=== PATIENT | female | born 1970 | race Caucasian/White ===

== ENCOUNTER 2023-07-19 15:11 | Outpatient (REF) | payer BC, SELFPAY | END 2023-07-19 15:12 | disposition home or self-care (01) | LOC: LBN 15:11 | PROVIDERS: PCP Obstetrics & Gynecology; Visit Provider Physician Assistant Medical | DX: J02.9 Acute pharyngitis, unspecified (principal) | CPT/HCPCS: 87070 ==

== ENCOUNTER 2024-05-27 01:05 | Outpatient (CLI) | payer BC, SELFPAY ==
--- NOTE | 2024-05-27 | DI.MRI_ITS ---
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 TECHNIQUE: Multiplanar multisequence MRI was performed. COMPARISON: None. FINDINGS: BONES: There is no fracture nor bone contusion. No evidence of avascular necrosis. JOINTS: The radiocarpal joint is unremarkable. The carpal joints are unremarkable. Scapholunate dis tance is normal. SOFT TISSUES: There is a para-articular ganglia on cyst on the palm are lateral aspect of the wrist,, appearing to terminate off of the volar lateral aspect of the radiocarpal joint and measuring approx imately 9 by 5 by 7 mm, exhibiting internal septations and intimately associated with the lateral asp ect of the flexor carpi radialis tendon. There is no tenosynovitis of this tendon. TENDONS: Flexors: Unremarkable. No tears nor tenosynovitis. Extensors: Unremarkable. No tears or tenosynovitis. Carpal tunnel:Unremarkable MUSCLES: Unremarkable. MEDIAN NERVE: Unremarkable on this noncontrast examination. LIGAMENTS: Unremarkable. TRIANGULAR FIBROCARTILAGE: SOME DEGENERATIVE INTERNAL SIGNAL NOTED. NO HIGH-GRADE TEAR. OTHER: IMPRESSION: There is a partially septated ganglia on cyst on the palm are lateral aspect of the wrist located imm ediately adjacent to the flexor carpi radialis tendon. DATA REPOSITORY:
== END 2024-05-27 01:25 ==
PROVIDERS: PCP Obstetrics & Gynecology; Visit Provider Nurse Practitioner Family
DX: M67.431 Ganglion, right wrist (principal)
CPT/HCPCS: 73221

== ENCOUNTER 2024-12-11 01:25 | Outpatient (CLI) | payer BC, SELFPAY ==
--- NOTE | 2024-12-11 07:00 | DI.MRI_ITS ---
Exam(s) MR LOWER JOINT LT WO EXAM: MR LOWER JOINT LT WO CLINICAL HISTORY: L KNEE PAIN,INTERNAL DERANGEMENT LT KNEE, M23.92 TECHNIQUE: Multiplanar multisequence MRI of the knee was performed. COMPARISON: CR XR KNEE LEFT 4 OR MORE VIEWS from 11/01/2024 FINDINGS: EFFUSION: There is a moderate size knee joint effusion. Mild synovial thickening noted. There is no Seymour cyst in the popliteal fossa. MARROW:There is no evidence of fracture, bone contusion, nor osteochondral defects.. Incidentally noted is a small benign-appearing non expansile bone lesion in the distal femoral metaphysis measuring 1.0 x 0.9 cm. This is most probably a benign enchondroma. There is no surrounding marrow edema. PATELLOFEMORAL COMPARTMENT: The quadriceps tendon is intact. The patellar ligament is intact. 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 There is also some mild intraosseous signal in the posterior patella but no osteochondral defects. There also small marginal osteophytes of both sides of the patella. There is no intraosseous signal to suggest recent patellar dislocation. There are no patellar retinacular tears. CRUCIATE LIGAMENTS: The anterior cruciate ligament is intact.The posterior cruciate ligament is intact. MEDIAL COMPARTMENT/MEDIAL MENISCUS: There is a complex tear in the medial aspect of the posterior horn of the medial meniscus which exhibits both radial and horizontal components and involves the root of the meniscus at this level. There is no evidence of tear in the outer 3rd of the posterior horn. There is no evidence of tear of the anterior horn. There is moderate thinning of the articular cartilage over the main weight- bearing surface of the medial femoral condyle. There is, however, no evidence of subarticular edema and there are no osteochondral defects. Small marginal osteophytes are noted off the inner and outer aspects of the medial condyle. There is no abnormal signal in the subjacent medial tibial plateau. MEDIAL COLLATERAL LIGAMENT: Intact LATERAL COMPARTMENT/LATERAL MENISCUS: There is no evidence of lateral meniscal tear.There are no chondral defects, osteochondral defects, subarticular marrow edema, nor osteophytes evident. ILIOTIBIAL BAND: Intact LATERAL COLLATERAL LIGAMENT COMPLEX: The fibular collateral ligament is intact. The biceps femoris tendon is intact.Popliteus muscle and tendon are intact. IMPRESSION: 1. There is a complex tear in the inner aspect of the posterior horn of the medial meniscus just lateral to the root of the meniscus and exhibiting both radial and horizontal tear components. There are no flipped meniscal fragments nor displacement of meniscal fragment into the intercondylar notch. There is no obvious tear of the anterior horn of the medial meniscus. There are no tears of the lateral meniscus. 2. There are mild-moderate degenerative changes in the medial compartment. There is no significant subarticular bone marrow edema. Minimal if any significant degenerative changes noted in the lateral compartment. 3. 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 There are no osteochondral defects at this level. No evidence to suggest recent patellar dislocation. 4. There are no cruciate ligament tears and there are no collateral ligament tears. 5. There is a moderate size knee joint effusion. Mild synovial thickening. No significant loose intra-articular bodies DATA REPOSITORY:
== END 2024-12-11 01:45 ==
LOC: DI 01:25
PROVIDERS: PCP Obstetrics & Gynecology; Visit Provider Student in an Organized Health Care Education/Training Program
DX: M23.92 Unspecified internal derangement of left knee (principal)
CPT/HCPCS: 73721